=== PATIENT | male | born 2000 | race African-American/Black ===

== ENCOUNTER 2021-08-03 14:05 | Emergency (ER) | payer SELFPAY ==
[~2021-08-03] VITALS: Ht 170.2 cm; Wt 65.0 kg
[2021-08-03] MEDS ORDERED: SODIUM CHLORIDE 0.9% 1,000 ML IV ONE (15:00)
[2021-08-03 15:35] LABS: BASOPHILS % 0.5 % (0.0-2.0); EOSINOPHILS % 0.1 % (0.0-5.0); HEMATOCRIT. 46.8 % (42.0-52.0); HEMOGLOBIN. 15.8 g/dL (14.0-18.0); LYMPHOCYTES % 19.1 % (20.0-50.0); MEAN CORPUSCULAR HEMOGLOBIN 30.4 pg (28.0-32.0); MEAN CORPUSCULAR VOLUME 90.1 fL (80.0-94.0); MEAN PLATELET VOLUME 7.5 fl (7.4-10.4); MONOCYTES % 8.9 % (2.0-8.0); NEUTROPHILS % 71.4 % (40.0-76.0); PLATELET 297 x1000/uL (130-400); RED CELL DISTRIBUTION WIDTH 13.4 % (11.6-14.6)
[2021-08-03 15:43] LABS: CHLORIDE 104 mEq/L (98-107)
[2021-08-03 15:49] LABS: ETHANOL BLOOD < 10 mg/dL
[2021-08-03] MEDS ORDERED: POTASSIUM CHLORIDE 20MEQ TABLET SR PO ONE (17:15)
[2021-08-03 17:30] VITALS: BP 131/79
== END 2021-08-03 17:15 | disposition home or self-care (01) ==
LOC: ER 14:05
DX: F12.988 Cannabis use, unspecified with other cannabis-induced disorder (principal)
CPT/HCPCS: 36415; 71045; 80053; 80320; 85025; 96360; 99285; G0480